=== PATIENT | female | born 1980 | race African-American/Black ===

== ENCOUNTER 2018-03-11 07:31 | Day surgery (SDC) | payer BC, OTHER ==
[2018-03-10 11:27] VITALS: BMI 23.0
[2018-03-11] MEDS ORDERED: PROPOFOL 20 ML ONE ×2 (09:27)
[2018-03-11] MEDS ORDERED: SUCCINYLCHOLINE CHLORIDE 200 MG/10 ML VIAL ONE (09:27)
[2018-03-11] MEDS ORDERED: MIDAZOLAM HCL 2 MG/2 ML SINGLE DOSE VIAL ONE (09:27)
[2018-03-11] MEDS ORDERED: BUPIVACAINE HCL 0.25% 125 MG/50 ML VIAL ONE (09:31)
[2018-03-11 12:08] VITALS: BP 108/65; PULSE 66; TEMP 98.1
--- NOTE | 2018-03-11 17:10 | OP ---
DATE OF OPERATION: 03/11/2018 LOCATION: [facility] SURGEON: Willie Brooke MD CLINICAL PROGRAMMER: ASHLEE Rust PREOPERATIVE DIAGNOSIS: Left wrist ganglion cyst/dorsal wrist mass. POSTOPERATIVE DIAGNOSIS: Left wrist ganglion cyst/dorsal wrist mass. PROCEDURE: Excision of mass, dorsal wrist. FINDINGS: Ganglion cyst, extension into carpus/carpal joint. DESCRIPTION OF PROCEDURE: Informed consent was obtained. The patient came to the operating room, where the lower extremity was prepped and draped in a sterile fashion. A tourniquet was placed on the upper arm, inflated to 250 mmHg. A horizontal incision was made across the mass, and the ganglion cyst was from surrounding tissues. It was removed from capsular tissues, paying careful attention to avoid neurovascular structures. Stalk was identified going into the mid-carpal area, was taken down to the stalk where the capsule and the posterior portion was opened up and a Bovie used along the edges to prevent recurrence of the cyst. Cyst was then sent to Pathology. The wound was irrigated with copious amounts of irrigation, closed with 3-0 Vicryl and 4-0 nylon. Sterile dressing was placed. The patient was transferred to recovery room without complication. WILLIE BROOKE M.D. [id number]
--- NOTE | 2018-03-16 14:10 | PATH ---
Surgical Pathology Report Patient Name: CHELLY MERCADO [facility]. Rec. #: [id number] /Age/Gender: 1980 (Age: 37) / F Account: [id number] Location: ON LICENSE OF [facility] AMBULATORY Taken: 03/11/2018 Received: 03/11/2018 Reported: 03/16/2018 Physicians: Brenden Schneider M.D. Specimen(s) Received GANGLION CYST LEFT WRIST Clinical History Ganglion left wrist Final Diagnosis WRIST, LEFT, GANGLION CYST, EXCISION: GANGLION CYST. Electronically Signed Kika Clay M.D. Gross Description Received in formalin labeled "ganglion cyst left wrist," is a 2.4 x 1.5 x 0.8 cm payne-yellow, focally disrupted cyst containing clear mucinous material. The specimen is serially sectioned and entirely submitted in one cassette. saudi/03/14/2018
== END 2018-03-11 12:17 | disposition home or self-care (01) ==
LOC: FASU 07:31
PROVIDERS: ATTEND Orthopaedic Surgery
PROC: 0LB60ZZ Excision of Left Lower Arm and Wrist Tendon, Open Approach (ICD-10-PCS; principal; 2018-03-11 10:16)
DX: M67.432 Ganglion, left wrist (principal)
CPT/HCPCS: 84703; 94760